=== PATIENT | female | born 1955 | race Caucasian/White ===

== ENCOUNTER → 2017-08-10 | Outpatient (CLI) | payer OTHER ==
[~2017-08-10] MED LIST: CIPR-255 PO; IBUP-103 PO
[2017-08-10 12:52] LABS: BASO % 0.4 %; BASO ABS # 0.03 K/uL (0-0.2); EOS % 3.4 %; EOS ABS # 0.23 K/uL (0-0.5); HEMATOCRIT 46.2 % (37-47); HEMOGLOBIN 15.2 g/dL (12.0-16.0); IG# 0.01 K/uL (0.00-0.02); LYMPH % 35.2 %; LYMPH ABS # 2.39 K/uL (1.2-3.4); MEAN CELL VOLUME 93.9 fL (80-100); MEAN CORPUSCULAR HEMOGLOBIN 30.9 pg (25-34); MEAN CORPUSCULAR HGB CONC 32.9 g/dl (32-36); MEAN PLATELET VOLUME 11.2 fL (7.4-10.4); MONO % 11.6 %; MONO ABS # 0.79 K/uL (0.11-0.59); NEUT % 49.3 %; NEUT ABS # 3.34 K/uL (1.4-6.5); PLATELET COUNT 321 K/uL (130-400); RED CELL DISTRIBUTION WIDTH CV 15.2 % (11.5-14.5); RED CELL DISTRIBUTION WIDTH SD 52.3 fL (36.4-46.3); WHITE BLOOD COUNT 6.79 K/uL (4.8-10.8)
[2017-08-10 13:34] LABS: ALBUMIN 3.7 gm/dl (3.4-5.0); ALT/SGPT 31 U/L (12-78); AST/SGOT 22 U/L (15-37); BLOOD UREA NITROGEN 13 mg/dl (7-18); CALCIUM 9.2 mg/dl (8.5-10.1); CARBON DIOXIDE 31 mmol/L (21-32); CREATININE 0.74 mg/dl (0.60-1.20); GLUCOSE 92 mg/dl (70-99); POTASSIUM 4.6 mmol/L (3.5-5.1); SODIUM 141 mmol/L (136-145)
[2017-08-10 13:45] LABS: ALKALINE PHOSPHATASE 73 U/L (45-117); CHOLESTEROL 193 mg/dl (0-200); LDL CHOLESTEROL CALCULATED 112 mg/dl; TOTAL PROTEIN 7.2 gm/dl (6.4-8.2)
== END | disposition home or self-care (01) ==
LOC: C.LABBFT 08:12
PROVIDERS: ATTEND Internal Medicine
DX: R03.0 Elevated blood-pressure reading, without diagnosis of hypertension (principal); Z11.59 Encounter for screening for other viral diseases; Z13.220 Encounter for screening for lipoid disorders; Z68.42 Body mass index [BMI] 45.0-49.9, adult

== ENCOUNTER → 2017-08-19 | Outpatient (CLI) | payer OTHER | END | disposition home or self-care (01) | LOC: C.MAMM 08:10 | PROVIDERS: ATTEND Internal Medicine | DX: Z78.0 Asymptomatic menopausal state (principal) ==

== ENCOUNTER → 2017-08-23 | Outpatient (CLI) | payer OTHER | END | disposition home or self-care (01) | LOC: C.PAPS 09:44 | PROVIDERS: ATTEND Obstetrics & Gynecology | DX: Z12.4 Encounter for screening for malignant neoplasm of cervix (principal) ==

== ENCOUNTER → 2017-08-31 | Outpatient (CLI) | payer OTHER ==
--- NOTE | 2017-09-01 07:51 | MAMMOGRAPHY REPORT ---
BILATERAL DIGITAL SCREENING MAMMOGRAM TOMOSYNTHESIS WITH CAD: 08/31/2017 CLINICAL HISTORY: Routine screening. Patient has no complaints. TECHNIQUE: Breast tomosynthesis in addition to standard 2D mammography was performed. Current study was also evaluated with a Computer Aided Detection (CAD) system. COMPARISON: Comparison is made to exams dated: 10/03/2015 mammogram, 08/14/2014 mammogram, 02/13/2011 m ammogram, 02/10/2010 mammogram, 02/18/2006 mammogram, and 12/07/2003 mammogram - [facility] enter. BREAST COMPOSITION: There are scattered areas of fibroglandular density in both breasts. FINDINGS: There are scattered stable benign punctate and rim calcifications in the breasts. No suspi cious mass, architectural distortion or cluster of suspicious microcalcifications is seen. IMPRESSION: ACR BI-RADS CATEGORY 1: NEGATIVE There is no mammographic evidence of malignancy. A 1 year screening mammogram is recommended. The pa tient will receive written notification of the results. Approximately 10% of breast cancers are not detected with mammography. A negative mammographic report should not delay biopsy if a clinically suggestive mass is present. Sarika Benavidez M.D. ay/:08/31/2017 12:48:36 Creative Producer: La TAYLOR(Avani)(M), [facility] letter sent: Normal 1/2 BI-RADS Code: ACR BI-RADS Category 1: Negative
== END | disposition home or self-care (01) ==
LOC: C.MAMM 11:25
PROVIDERS: ATTEND Internal Medicine
DX: Z12.31 Encounter for screening mammogram for malignant neoplasm of breast (principal)

== ENCOUNTER 2017-09-14 18:45 | Emergency (ER) | payer OTHER ==
[~2017-09-14] VITALS: Ht 157.5 cm; Wt 114.0 kg
[2017-09-14 18:49] VITALS: TEMP 36.6; Ht 157.5 cm; Wt 114.0 kg
[2017-09-14] MEDS ORDERED: ACETAMINOPHEN 500 MG TAB PO STA (19:03)
--- NOTE | 2017-09-14 20:04 | DIAGNOSTIC IMAGING REPORT ---
L TIBIA/FIBULA 2 VIEWS ROUTINE HISTORY: 61 years-old Female left donnelly hematoma s/p fall acute swelling of the left lower leg status post fall COMPARISON: None available TECHNIQUE: 3 views of the left tibia and fibula FINDINGS: There is a focal area of moderate soft tissue swelling involving the proximal pretibial tissues measuring up to approximately 5.3 cm in craniocaudal dimension. No opaque foreign body. There is no acute fracture or dislocation identified. Moderate tricompartmental osteoarthritis about the knee. Degenerative changes are noted about the foot. IMPRESSION: 1. No acute fracture or dislocation. 2. Moderate focal soft tissue swelling of the proximal pretibial tissues without opaque foreign body. The above report was generated using voice recognition software. It may contain grammatical, syntax or spelling errors. Electronically signed by: Dylan Washington M.D. 09/14/2017 8:03 PM Dictated Date/Time: 09/14/2017 8:01 PM
--- NOTE | 2017-09-14 20:06 | DIAGNOSTIC IMAGING REPORT ---
R FOOT MIN 3 VIEWS ROUTINE HISTORY: 61 years-old Female 5th metatarsal pain s/p fall acute right fifth metatarsal pain status post fall COMPARISON: None available TECHNIQUE: 3 views of the right foot FINDINGS: The bones appear mildly demineralized. Mild degenerative changes about the first MTP joint with mild multidigit interphalangeal osteoarthritis. There is fusion of the fourth and fifth DIP joints. Type II accessory navicular. Moderate degenerative changes about the midfoot. There is mild soft tissue swelling about the forefoot, notably within the region of the fifth metatarsal without acute fracture or dislocation identified. Small plantar calcaneal enthesophyte. IMPRESSION: 1. Mild soft tissue swelling without acute fracture. 2. Degenerative changes as above. The above report was generated using voice recognition software. It may contain grammatical, syntax or spelling errors. Electronically signed by: Dylan Washington M.D. 09/14/2017 8:05 PM Dictated Date/Time: 09/14/2017 8:03 PM
--- NOTE | 2017-09-14 20:18 | EMERGENCY ROOM VISIT NOTE ---
ED Visit Note First contact with patient: 18:56 CHIEF COMPLAINT: Fall, right hand abrasion, right foot pain, lump on left donnelly HISTORY OF PRESENT ILLNESS: This 61-year-old female patient presents to the emergency department, ambulatory, complaining of swelling and pain in the left donnelly. The patient also complains of a superficial abrasion on the right hand and some soreness on the lateral aspect of the right foot. The patient was walking in front of her house, when she fell at approximately 330 this afternoon. She states she landed on her legs, but most of fallen on the right hand. She immediately washed and bandaged the wound on the hands. She continues to experience pain in the right foot at rest and worse with weight bearing. The patient also reports bruising and swelling in the proximal aspect of the left donnelly. The patient rates the pain as sharp and 4/10. The patient has not had relief of the pain. The patient is able to walk. No numbness or weakness. No ankle pain. There are no lacerations of the foot. The patient is able to move all of their toes and their ankle without pain. No previous fracture to this foot or leg. The patient took naproxen at approximately 4:00 today, and states the symptoms are slightly worsening. REVIEW OF SYSTEMS: GENERAL: A 6 system review of systems was completed with positives and pertinent negatives in the HPI. ALLERGIES: None MEDICATIONS: None PMH: None SOCIAL HISTORY: The patient lives locally with family. She denies drug, alcohol , tobacco use. PHYSICAL EXAM: Vital Signs: Reviewed Nurse's notes, vital signs stable. GENERAL: This is a 61-year-old obese white female, in no acute distress, but appears in pain, well-developed, well-nourished. SKIN: Superficial abrasions on the palmar aspect of the right hand. Small, superficial abrasions over the hematoma of the left donnelly. There is approximately a 5cm hematoma of the left anterior donnelly. No visual deformity or erythema. No signs of infection or active bleeding. MUSCULOSKELETAL: There is mild discomfort and tenderness of the left proximal donnelly. The patient has full range of motion at the left knee and ankle. There is no visual deformity of the right foot. There is no erythema or ecchymosis. There is no warmth. There is tenderness and swelling over the lateral aspect of the right foot. There is no tenderness over the lateral or medial malleolus. No tenderness of the tib/fib on the right. The range of motion of the ankle and toes is not limited. There is no tenderness over the plantar fascia. The skin is intact and there are no lacerations or puncture wounds. Dorsalis pedis pulse 2+. Capillary refill less than 2 seconds. RADIOLOGY: R FOOT MIN 3 VIEWS ROUTINE HISTORY: 61 years-old Female 5th metatarsal pain s/p fall acute right fifth metatarsal pain status post fall COMPARISON: None available TECHNIQUE: 3 views of the right foot FINDINGS: The bones appear mildly demineralized. Mild degenerative changes about the first MTP joint with mild multidigit interphalangeal osteoarthritis. There is fusion of the fourth and fifth DIP joints. Type II accessory navicular. Moderate degenerative changes about the midfoot. There is mild soft tissue swelling about the forefoot, notably within the region of the fifth metatarsal without acute fracture or dislocation identified. Small plantar calcaneal enthesophyte. IMPRESSION: 1. Mild soft tissue swelling without acute fracture. 2. Degenerative changes as above. The above report was generated using voice recognition software. It may contain grammatical, syntax or spelling errors. Electronically signed by: Dylan Washington M.D. 09/14/2017 8:05 PM Dictated Date/Time: 09/14/2017 8:03 PM L TIBIA/FIBULA 2 VIEWS ROUTINE HISTORY: 61 years-old Female left donnelly hematoma s/p fall acute swelling of the left lower leg status post fall COMPARISON: None available TECHNIQUE: 3 views of the left tibia and fibula FINDINGS: There is a focal area of moderate soft tissue swelling involving the proximal pretibial tissues measuring up to approximately 5.3 cm in craniocaudal dimension. No opaque foreign body. There is no acute fracture or dislocation identified. Moderate tricompartmental osteoarthritis about the knee. Degenerative changes are noted about the foot. IMPRESSION: 1. No acute fracture or dislocation. 2. Moderate focal soft tissue swelling of the proximal pretibial tissues without opaque foreign body. The above report was generated using voice recognition software. It may contain grammatical, syntax or spelling errors. Electronically signed by: Dylan Washington M.D. 09/14/2017 8:03 PM Dictated Date/Time: 09/14/2017 8:01 PM EMERGENCY DEPARTMENT COURSE: I examined the patient. She was given 1 g Tylenol for her symptoms. An X-ray of the right foot and left tib/fib was reviewed by myself and radiologist and reveals a hematoma on the left donnelly, but no acute bony abnormalities or fractures. The left donnelly/hematoma was wrapped in an Yobani wrap to provide compression. The patient was encouraged to use ice. I did recommend close outpatient follow-up with the primary care provider, and did discuss the increased risk of infection with the patient. She verbalizes understanding. She will keep the wound clean and monitor for signs of infection. Discharge instructions reviewed. The patient was discharged home in good condition. I attest that I have personally reviewed the patient's current medication list. Patient was found to have normal blood pressure on screening and does not require follow-up. Etiologies such as soft tissue injury, fracture, dislocation, neurovascular compromise, compartment syndrome, as well as others were entertained. DIAGNOSIS: Fall, abrasion of right hand, contusion of right foot, traumatic hematoma of left lower leg The chart was completed utilizing [employer] voice recognition software. Grammatical errors, random word insertions, pronoun errors, and incomplete sentences are an occasional consequence of this system due to software limitations, ambient noise, and hardware issues. Any formal questions or concerns about the content, text, or information contained within the body of this dictation should be directly addressed to the provider for clarification. Current/Historical Medications Scheduled Ciprofloxacin Hcl (Cipro), 500 MG PO BID Scheduled PRN Ibuprofen Tab (Advil), 400 MG PO DAILY PRN for Pain Allergies Coded Allergies: No Known Allergies (Unverified , 11/17/13) Vital Signs Date Time Temp Pulse Resp B/P (MAP) Pulse Ox O2 Delivery O2 Flow Rate FiO2 09/14/17 20:19 71 18 167/71 96 09/14/17 18:49 36.6 65 20 187/78 95 Room Air Medications Administered Medications (Trade) Dose Ordered Sig/Corona Route Start Time Stop Time Status Last Admin Dose Admin Acetaminophen (Tylenol Tab) 1,000 mg NOW STAT PO 09/14/17 19:03 09/14/17 19:04 DC 09/14/17 19:17 1,000 MG Departure Information Impression Primary Impression: Traumatic hematoma of left lower leg Additional Impressions: Contusion of right foot Fall on same level Abrasion of right hand Dispostion Home / Self-Care Condition GOOD Referrals Godfrey Martin M.D. (PCP) Inocente Sánchez D.O. Patient Instructions ED Contusion Foot, ED Hematoma, ED Mechanical Fall, [facility] Additional Instructions You were seen in the ED today for right foot contusion, left donnelly hematoma. X- rays did not reveal any acute fracture. Ibuprofen(Motrin, Advil) may be used for fever or pain. Use 600mg every six hours as needed. Take with food. Avoid using more than 2400mg in a 24 hour period. Do not use 2400mg per day for more than three consecutive days without physician direction. Prolonged inappropriate use can lead to stomach upset or ulcers. (AND/OR) Acetaminophen(Tylenol) may be used for fever or pain. Use 1000mg every six hours as needed. Avoid using more than 4000mg in a 24 hour period. Ice compresses for 20 minutes at a time four times daily for 2-3 days. As discussed, the hematoma on the donnelly is a risk for getting infection. Keep this clean with soap and water and apply the YOBANI wrap as needed for compression and comfort. Monitor for any signs of redness, worsening swelling, purulent drainage, or fever. Have the wound re-evaluated in 2-3 days by your PCP or sooner if any of the above symptoms occur. Rest and elevate your injury. Return to the ER immediately for any numbness, tingling, severe pain, extreme swelling in the extremity or as needed. Call [facility], [phone], if no improvement in 1 week to arrange follow up for your injury. Follow-up with your primary care physician in 2 to 3 days for a recheck of your current condition. Problem Qualifiers Primary Impression: Traumatic hematoma of left lower leg Encounter type: initial encounter Qualified Codes: S80.12XA - Contusion of left lower leg, initial encounter Additional Impressions: Contusion of right foot Encounter type: initial encounter Qualified Codes: S90.31XA - Contusion of right foot, initial encounter Fall on same level Encounter type: initial encounter Qualified Codes: W18.30XA - Fall on same level, unspecified, initial encounter Abrasion of right hand Encounter type: initial encounter Qualified Codes: S60.511A - Abrasion of right hand, initial encounter
[2017-09-14 20:19] VITALS: BP 167/71; PULSE 71; O2SAT 96
== END 2017-09-14 20:26 | disposition home or self-care (01) ==
LOC: C.EDB 18:46 → C.EDD 20:26
DX: S80.12XA Contusion of left lower leg, initial encounter (principal); S90.31XA Contusion of right foot, initial encounter; S60.511A Abrasion of right hand, initial encounter; W19.XXXA Unspecified fall, initial encounter; Y92.009 Unspecified place in unspecified non-institutional (private) residence as the place of occurrence of the external cause